=== PATIENT | male | born 1990 | race Caucasian/White ===

== ENCOUNTER 2017-08-01 22:35 | Emergency (ER) | payer SELFPAY ==
[~2017-08-01] VITALS: Ht 167.6 cm; Wt 64.0 kg
[2017-08-01 22:41] VITALS: BP 134/70; PULSE 93; RESP 20; TEMP 98.1
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
[2017-08-01] MEDS ORDERED: ceFAZolin 2 GM PREMIX 50 ML IV ONE (23:00)
[2017-08-01] MEDS ORDERED: SODIUM CHLOR 0.9% 1000 ML INJ 1,000 ML IV ONE (23:00)
[2017-08-01] MEDS ORDERED: DIPHTH/TETANUS/ACEL PERTUSSIS (BOOSTER) 0.5 ML VIAL/PFS IM ONE (23:00)
[2017-08-01 23:27] LABS: AUTOMATED NEUTROPHIL # 3.7 TH/MM3 (1.8-7.7); BASOPHIL % 0.7 % (0.0-2.0); EOSINOPHIL # 0.4 TH/MM3 (0-0.4); EOSINOPHIL % 6.3 % (0.0-4.0); HEMO FLAGS DIFF FINAL; LYMPH % 30.4 % (9.0-44.0); MEAN CELL VOLUME 93.3 FL (80.0-100.0); MEAN CORPUSCULAR HEMOGLOBIN 31.7 PG (27.0-34.0); MONO % 7.1 % (0.0-8.0); NEUT % 55.5 % (16.0-70.0); PLATELET COUNT 230 TH/MM3 (150-450); RED CELL DISTRIBUTION WIDTH 12.5 % (11.6-17.2); WHITE BLOOD COUNT 6.7 TH/MM3 (4.0-11.0)
[2017-08-01 23:38] LABS: APTT (PATIENT) 25.5 SEC (24.3-30.1); PROTHROMBIN TIME - PATIENT 10.7 SEC (9.8-11.6)
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
[2017-08-01 23:57] LABS: ALKALINE PHOSPHATASE 66 U/L (45-117); ALT (GPT) 25 U/L (12-78); TOTAL BILIRUBIN ADULT 0.2 MG/DL (0.2-1.0)
[2017-08-02 00:19] LABS: ANION GAP 10 MEQ/L (5-15); AST (GOT) 21 U/L (15-37); BICARBONATE 22.8 MEQ/L (21.0-32.0); BLOOD UREA NITROGEN 14 MG/DL (7-18); CHLORIDE 112 MEQ/L (98-107); GLOMERULAR FILTRATION RATE 108 ML/MIN (>89); POTASSIUM 3.5 MEQ/L (3.5-5.1); SODIUM (NA) 145 MEQ/L (136-145)
[2017-08-02 00:22] LABS: ACETAMINOPHEN LESS THAN 2.0 MCG/ML (10.0-30.0); ALCOHOL 224 MG/DL (0-5)
[2017-08-02 00:35] LABS: BLOOD, URINE NEG (NEG); COMMENT (UR) CULT NOT INDICATED; CULTURE IF INDICATED CULT NOT INDICATED; GLUCOSE,URINE NEG (NEG); KETONE, URINE TRACE mg/dL (NEG); MUCUS URINE FEW /lpf (OCC); NITRITE,URINE NEG (NEG); URINE COLOR LIGHT-YELLOW (YELLW/STRAW)
[2017-08-02] MEDS ORDERED: IOHEXOL 350 MG/ML 10 ML VIAL (for RAD DIAG) IVCONTRAST ONE (01:00)
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
[2017-08-02 02:19] VITALS: BP 128/55; PULSE 78; RESP 16; O2SAT 97
== END 2017-08-02 03:20 | disposition home or self-care (01) ==
LOC: NEPE 22:35
DX: S30.811A Abrasion of abdominal wall, initial encounter (principal); S30.810A Abrasion of lower back and pelvis, initial encounter; S90.512A Abrasion, left ankle, initial encounter; S20.221A Contusion of right back wall of thorax, initial encounter; M25.551 Pain in right hip; V03.90XA Pedestrian on foot injured in collision with car, pick-up truck or van, unspecified whether traffic or nontraffic accident, initial encounter; Y92.414 Local residential or business street as the place of occurrence of the external cause
CPT/HCPCS: 70450; 71010; 72125; 73502; 74177; 80053; 80307; 81001; 85025; 85384; 85610; 85730; 86850; 86900; 86901; 90471; 90715; 96365; 99285; J0690; J7030; Q9967

== ENCOUNTER 2018-04-22 10:51 | Inpatient (IN) | payer OTHER ==
[~2018-04-22] VITALS: Ht 167.6 cm; Wt 56.9 kg
[2018-04-22 11:12] VITALS: BP 111/69; PULSE 83; RESP 17; TEMP 97.5; O2SAT 96
[2018-04-22 12:07] LABS: AUTOMATED NEUTROPHIL # 4.8 TH/MM3 (1.8-7.7); BASOPHIL % 0.4 % (0.0-2.0); EOSINOPHIL % 0.1 % (0.0-4.0); HEMATOCRIT 42.3 % (39.0-51.0); HEMOGLOBIN 14.3 GM/DL (13.0-17.0); LYMPHOCYTE # 1.4 TH/MM3 (1.0-4.8); MEAN CELL VOLUME 91.7 FL (80.0-100.0); MEAN CORPUSCULAR HEMOGLOBIN 31.1 PG (27.0-34.0); MEAN CORPUSCULAR HGB CONC 33.9 % (32.0-36.0); MEAN PLATELET VOLUME 6.8 FL (7.0-11.0); MONO % 7.5 % (0.0-8.0); MONOCYTE # 0.5 TH/MM3 (0-0.9); PLATELET COUNT 257 TH/MM3 (150-450); RED BLOOD COUNT 4.61 MIL/MM3 (4.50-5.90); RED CELL DISTRIBUTION WIDTH 12.9 % (11.6-17.2); WHITE BLOOD COUNT 6.8 TH/MM3 (4.0-11.0)
[2018-04-22 12:23] LABS: ALBUMIN 4.8 GM/DL (3.4-5.0); AST (GOT) 26 U/L (15-37); BICARBONATE 27.1 MEQ/L (21.0-32.0); BLOOD UREA NITROGEN 15 MG/DL (7-18); CALCIUM 9.7 MG/DL (8.5-10.1); CHLORIDE 105 MEQ/L (98-107); CREATININE 0.97 MG/DL (0.60-1.30); GLOMERULAR FILTRATION RATE 94 ML/MIN (>89); GLUCOSE,RANDOM 81 MG/DL (74-106); SODIUM (NA) 140 MEQ/L (136-145)
[2018-04-22 12:24] LABS: ALT (GPT) 35 U/L (12-78)
[2018-04-22 12:26] LABS: ALKALINE PHOSPHATASE 83 U/L (45-117); TOTAL BILIRUBIN ADULT 0.9 MG/DL (0.2-1.0); TOTAL PROTEIN 8.3 GM/DL (6.4-8.2)
[2018-04-22 16:57] VITALS: BP 108/70; PULSE 74; RESP 18; TEMP 98.3; O2SAT 98
--- NOTE | 2018-04-22 17:32 | PD ---
HPI Chief Complaint: Psychiatric Symptoms Time Seen by Provider: 14:22 Travel History International Travel<30 days: No Contact w/Intl Traveler<30days: No Traveled to known affect area: No History of Present Illness HPI 27-year-old male presents to the emergency room voluntarily. States his sister brought him and encouraged him to stay. Patient states he has been talking to himself and his sister thinks he is weird. He has history of bipolar disorder and ADHD but has not been medicated since he was 15. He denies any physical complaints at this time. Denies any suicidal homicidal ideation. Denies hallucinations or delusions. States he has not smoked meth in about a month. He drank alcohol last night but has not done any other illicit drugs recently. He denies any chronic medical conditions or daily medications. PFSH Past Medical History AAA: No ADD: No ADHD: No Alzheimer's Disease: No Anemia: No Arthritis: No Asthma: No Atrial Fibrillation: No Autoimmune Disease: No Blood Disorders: No Bipolar Disorder: Yes Anxiety: Yes Depression: Yes Heart Rhythm Problems: No Cancer: No Cardiac Catheterization: No Cardiomyopathy: No Cardiovascular Problems: No Cerebral Palsy: No High Cholesterol: No Chemotherapy: No Chest Pain: No Congestive Heart Failure: No Cirrhosis: No COPD: No Cerebrovascular Accident: No Coronary Artery Disease: No Cystic Fibrosis: No Dementia: No Developmental Delay: No Diabetes: No Patient Takes Glucophage: No Dialysis: No Diminished Hearing: No Diverticulitis: No Deep Vein Thrombosis: No Endocrine: No Fibromyalgia: No Gastrointestinal Disorders: No Genetic Disorder: No GERD: No Glaucoma: No Gout: No Genitourinary: No Headaches: No Hepatitis: No Hiatal Hernia: No Heparin Induced Thrombocytopen: No Herniated Disk: No Hypertension: No Immune Disorder: No Inguinal Hernia: No Implanted Vascular Access Dvce: No Insomnia: No Kidney Stones: No Medical other: No Musculoskeletal: No Neurologic: No Parkinson's Disease: No Psychiatric: Yes Reproductive: No Respiratory: No Resp. Syncytial Virus (RSV): No Integumentary: No Immunizations Current: No Migraines: No Myocardial Infarction: No Pancreatitis: No Pneumonia: No Radiation Therapy: No Renal Failure: No Schizophrenia: No Seizures: No Shingles: No Sickle Cell Disease: No Sleep Apnea: No Thyroid Disease: No Triglycerides - High: No Ulcer: No Tetanus Vaccination: < 5 Years Influenza Vaccination: No Past Surgical History Abdominal Aneurysm Repair: No Abdominal Surgery: No AICD: No Appendectomy: No Arteriovenous Shunt: No Cardiac Surgery: No Cholecystectomy: No Coronary Artery Bypass Graft: No Coronary Stent: No Ear Surgery: No Endocrine Surgery: No Eye Surgery: No Genitourinary Surgery: No Gynecologic Surgery: No Insulin Pump: No Joint Replacement: No Mastectomy: No Neurologic Surgery: No Oral Surgery: No Pacemaker: No Prostatectomy: No Thoracic Surgery: No Tonsillectomy: No Tympanostomy Tube: No Valve Replacement: No Other Surgery: Yes (I&D abcess to left arn) Family History Family Breast Cancer: No Family Myocardial Infarction: No Family Hypercholesterolemia: No Social History Alcohol Use: Yes Tobacco Use: Yes Substance Use: Yes Allergies-Medications (Allergen,Severity, Reaction): Coded Allergies: No Known Allergies (Verified , 08/01/17) Reported Meds & Prescriptions Reported Meds & Active Scripts Active No Active Prescriptions or Reported Medications Review of Systems Except as stated in HPI: all other systems reviewed are Neg Physical Exam Narrative GENERAL: Well-nourished, well-developed male in no acute distress. Afebrile. Ambulatory. SKIN: Focused skin assessment warm/dry. HEAD: Normocephalic. EYES: No scleral icterus. No injection or drainage. NECK: Supple, trachea midline. No JVD or lymphadenopathy. CARDIOVASCULAR: Regular rate and rhythm without murmurs, gallops, or rubs. RESPIRATORY: Breath sounds equal bilaterally. No accessory muscle use. PSYCHIATRIC: No delusional thought processes. No hallucinations. He does not appear to be responding to external examination. Data Data Last Documented VS Vital Signs Date Time Temp Pulse Resp B/P (MAP) Pulse Ox O2 Delivery O2 Flow Rate FiO2 04/22/18 16:57 98.3 74 18 108/70 (83) 98 Room Air Orders Orders Complete Blood Count With Diff (04/22/18 11:14) Comprehensive Metabolic Panel (04/22/18 11:14) Psych Screen (04/22/18 11:14) Drug Screen, Random Urine (04/22/18 11:14) Diet Regular Basic (04/22/18 Dinner) Labs Laboratory Tests Test 04/22/18 11:41 04/22/18 11:42 White Blood Count 6.8 TH/MM3 Red Blood Count 4.61 MIL/MM3 Hemoglobin 14.3 GM/DL Hematocrit 42.3 % Mean Corpuscular Volume 91.7 FL Mean Corpuscular Hemoglobin 31.1 PG Mean Corpuscular Hemoglobin Concent 33.9 % Red Cell Distribution Width 12.9 % Platelet Count 257 TH/MM3 Mean Platelet Volume 6.8 FL Neutrophils (%) (Auto) 71.0 % Lymphocytes (%) (Auto) 21.0 % Monocytes (%) (Auto) 7.5 % Eosinophils (%) (Auto) 0.1 % Basophils (%) (Auto) 0.4 % Neutrophils # (Auto) 4.8 TH/MM3 Lymphocytes # (Auto) 1.4 TH/MM3 Monocytes # (Auto) 0.5 TH/MM3 Eosinophils # (Auto) 0.0 TH/MM3 Basophils # (Auto) 0.0 TH/MM3 CBC Comment DIFF FINAL Differential Comment Blood Urea Nitrogen 15 MG/DL Creatinine 0.97 MG/DL Random Glucose 81 MG/DL Total Protein 8.3 GM/DL Albumin 4.8 GM/DL Calcium Level 9.7 MG/DL Alkaline Phosphatase 83 U/L Aspartate Amino Transf (AST/SGOT) 26 U/L Alanine Aminotransferase (ALT/SGPT) 35 U/L Total Bilirubin 0.9 MG/DL Sodium Level 140 MEQ/L Potassium Level 4.1 MEQ/L Chloride Level 105 MEQ/L Carbon Dioxide Level 27.1 MEQ/L Anion Gap 8 MEQ/L Estimat Glomerular Filtration Rate 94 ML/MIN Urine Opiates Screen NEG Urine Barbiturates Screen NEG Urine Amphetamines Screen NEG Urine Benzodiazepines Screen NEG Urine Cocaine Screen NEG Urine Cannabinoids Screen NEG MDM Medical Decision Making Medical Screen Exam Complete: Yes Emergency Medical Condition: Yes Medical Record Reviewed: Yes Differential Diagnosis Bipolar disorder, schizophrenia, substance abuse, substance induced mood disorder Narrative Course 27-year-old who presents to the emergency room by request of his sister voluntarily for evaluation of "acting weird." Patient states his sister believes he is acting strange because he keeps talking to himself. He denies hallucinations or delusions. Denies suicidal or homicidal ideation. Patient does not appear to be responding to stimuli during examination but was monitored on the video surveillance having conversations with people that are not there. He denies any medical complaint. Denies any history of medical complaints. He does have history of bipolar disorder but has not been medicated in several years. CBC and CMP are unremarkable. Toxicology is negative. He is medically cleared for psychiatric evaluation. Scripts No Active Prescriptions or Reported Meds Condition: Litzy Cruz April 22, 2018 17:32
[2018-04-22] MEDS ORDERED: OLANZapine ODT 10 MG TAB PO ONE (17:45)
[2018-04-22] MEDS ORDERED: diphenhydrAMINE HCL 50 MG CAP PO ONE (17:45)
[2018-04-23 02:29] VITALS: BP 101/54; PULSE 80; RESP 18; TEMP 96.8; O2SAT 97
[2018-04-23 06:35] VITALS: BP 107/62; PULSE 50; RESP 19; TEMP 98.6; O2SAT 98
[2018-04-23] MEDS ORDERED: LORazepam 2 MG/ML VIAL IM PRN ×2 (08:30)
[2018-04-23] MEDS ORDERED: ALUMINUM/MAGNESIUM/SIMETH 30 ML CUP PO PRN (08:30)
[2018-04-23] MEDS ORDERED: MAGNESIUM HYDROXIDE SUSP 30 ML CUP PO PRN (08:30)
[2018-04-23] MEDS ORDERED: LORazepam 0.5 MG TAB PO PRN (08:30)
[2018-04-23] MEDS: NICOTINE 21 MG/24 HR PATCH T-DERMAL SCH (09:00)
[2018-04-23 10:15] VITALS: BP 112/67; PULSE 56; RESP 16; TEMP 97.8; O2SAT 98
[2018-04-23] MEDS: ARIPiprazole 5 MG TAB PO SCH (11:11)
--- NOTE | 2018-04-23 11:51 | HHI.HP ---
Provisional Diagnosis Admission Date April 23, 2018 at 08:27 [place] I. Unspecified psychosis, r/o schizoaffective disorder bipolar, R/o schizophrenia, r/o substance-induced psychosis, history of bipolar disorder, ODD [place] II. Deferred [place] III. No significant medical history [place] IV. Multiple psychiatric hospitalizations in the past, he is not in psychiatric treatment, substance abuse [place] V. 40 Certification of Person's Competence To Provide Express and Informed Consent I have personally examined Lorenzo Bennett , a person being served at [facility] on, April 23, 2018 11:35. Express and informed consent means consent voluntarily given in writing, by a competent person, after sufficient explanation and disclosure of the subject matter involved to enable the person to make a knowing and willful decision without any element of force, fraud, deceit, duress, or other form of constraint or coercion. This person is 18 years of age or older, is not now known to be incompetent to consent to treatment with a guardian advocate, and does not have a health care surrogate or proxy currently making medical treatment decisions. I have found this person to be one of the following: [] Competent to provide express and informed consent, as defined above, for voluntary admission to this facility and is competent to provide express and informed consent for treatment. He/she has the consistent capacity to make well reasoned, willful, and knowing decisions concerning his or her medical or mental health treatment. The person fully and consistently understands the purpose of the admission for examination/placement and is fully capable of personally exercising all rights [place] Incompetent to provide express and informed consent to voluntary admission, and this is incompetent to provide express and informed consent to treatment. The person must be transferred to involuntary status and a petition for a guardian advocate filed with the Circuit Court. [x] Refusing to provide express and informed consent to voluntary admission but is competent to provide express and informed consent for treatment. The person must be discharged or transferred to involuntary status. Form shall be completed within 24 hours of a person's arrival at the receiving facility and filed in the clinical record of each person: 1. Admitted on a voluntary basis 2. Permitted to provide express and informed consent to his/her own treatment 3. Allowed to transfer from involuntary to voluntary status 4. Prior to permitting a person to consent to his or her own treatment after having been previously found incompetent to consent to treatment. History of Present Illness Capacity: Has Capacity HPI The patient is a 27-year-old man, domiciled in [place] with his sister, single, part-time employed doing yard work, with an extensive psychiatric history of bipolar disorder, ODD, ADHD, multiple psychiatric hospitalizations in his childhood and adolescence, one previous suicide attempt , not taking any psychotropics, no outpatient care, cocaine and alcohol use disorder, no significant medical history, presents to the emergency room initially voluntarily with his sister for psychiatric evaluation. Initially states his sister brought him and encouraged him to stay and to start his treatment. Patient states he has been talking to himself and his sister thinks he is weird. When the patient was transferred to the [facility] from [facility] he became increasingly agitated and verbally hostile, he was not able to follow verbal redirection and he was medicated with olanzapine 10 mg and Benadryl 25 mg IM to help him to calm down. He was also put on the [place] act. Today on psychiatric evaluation I find a patient that is guarded, irritable, oppositional , disheveled and dirty. At the beginning the patient was refusing to talk to me. But, he was sensitive to verbal redirection this time and he opened up a little bit. The patient has a marked blocking thought and speech delay. He states that for the first time in about a week he had a good sleep last night. He reports that he has not been sleeping more than 2 hours. He says that he has been hearing voices on and off. The voices are conversing among themself making derogatory comments about him. He also states that at times the voices get very loud "and nasty". As per sister the patient has been talking to himself, acting bizarre, secluded in his room, not taking showers, not taking care of himself and not sleeping. The patient is now fully oriented 3, he has no attention deficit, no fluctuation of consciousness. The patient denies suicidal and homicidal ideation, he denies visual hallucinations. Patient reports that he has been using alcohol and cocaine occasionally, he uses for the last time about 3 days ago. Review of Systems Constitutional: DENIES: Diaphoretic episodes, Fatigue, Fever, Weight gain, Weight loss, Chills, Dizziness, Change in appetite, Night Sweats Endocrine: DENIES: Heat/cold intolerance, Polydipsia, Polyuria, Polyphagia Eyes: DENIES: Blurred vision, Diplopia, Eye inflammation, Eye pain, Vision loss , Photosensitivity, Double Vision Ears, nose, mouth, throat: DENIES: Tinnitus, Hearing loss, Vertigo, Nasal discharge, Oral lesions, Throat pain, Hoarseness, Ear Pain, Running Nose, Epistaxis, Sinus Pain, Toothache, Odynophagia Respiratory: DENIES: Apneas, Cough, Snoring, Wheezing, Hemoptysis, Sputum production, Shortness of breath Cardiovascular: DENIES: Chest pain, Palpitations, Syncope, Dyspnea on Exertion , PND, Lower Extremity Edema, Orthopnea, Claudication Gastrointestinal: DENIES: Abdominal pain, Black stools, Bloody stools, Constipation, Diarrhea, Nausea, Vomiting, Difficulty Swallowing, Anorexia Genitourinary: DENIES: Sexual dysfunction, Urinary frequency, Urinary incontinence, Urgency, Hematuria, Dysuria, Nocturia, Penile Discharge, Testicular Pain, Testicular Swelling Musculoskeletal: DENIES: Joint pain, Muscle aches, Stiffness, Joint Swelling, Back pain, Neck pain Integumentary: DENIES: Abnormal pigmentation, Nail changes, Pruritus, Rash Hematologic/lymphatic: DENIES: Bruising, Lymphadenopathy Immunologic/allergic: DENIES: Eczema, Urticaria Neurologic: DENIES: Abnormal gait, Headache, Localized weakness, Paresthesias, Seizures, Speech Problems, Tremor, Poor Balance Psychiatric: COMPLAINS OF: Hallucinations, DENIES: Anxiety, Confusion, Mood changes, Depression, Agitation, Homicidal Ideation Substance Abuse History Drugs/Alcohol past 12 months Uses cocaine and alcohol occasionally Past Family Social History Coded Allergies: No Known Allergies (Verified Allergy, Unknown, 04/22/18) No Active Prescriptions or Reported Meds Current Medications Medications (Trade) Dose Ordered Sig/Rosa Route Start Time Stop Time Status Last Admin (Ativan) 1 mg Q6H PRN PO 04/23/18 08:30 (Ativan Inj) 1 mg Q6H PRN IM 04/23/18 08:30 (Tylenol) 650 mg Q4H PRN PO 04/23/18 08:30 (Milk Of Magnesia Liq) 30 ml DAILY PRN PO 04/23/18 08:30 (Mag-Al Plus Susp Liq) 30 ml Q6H PRN PO 04/23/18 08:30 (Habitrol 21 Mg Patch.24 Hr) 1 patch DAILY T-DERMAL 04/23/18 09:00 (Abilify) 5 mg DAILY PO 04/23/18 09:00 04/23/18 11:11 Miscellaneous Information 1 HS T-DERMAL 04/23/18 21:00 Family Psych History No family psychiatric history Social History Patient was born and raised in [place], he lives in [place] with his sister, single, employed part-time, his highest level of education is high school Patient's Strengths (min. 2) Family support Physical Exam No tremors, no EPS, he does presents with psychomotor retardation, sedated Vital Signs Vital Signs Date Time Temp Pulse Resp B/P (MAP) Pulse Ox O2 Delivery O2 Flow Rate FiO2 04/23/18 10:00 04/23/18 06:35 98.6 50 19 98 Room Air Lab Results Test 04/22/18 11:41 04/22/18 11:42 White Blood Count 6.8 TH/MM3 Red Blood Count 4.61 MIL/MM3 Hemoglobin 14.3 GM/DL Hematocrit 42.3 % Mean Corpuscular Volume 91.7 FL Mean Corpuscular Hemoglobin 31.1 PG Mean Corpuscular Hemoglobin Concent 33.9 % Red Cell Distribution Width 12.9 % Platelet Count 257 TH/MM3 Mean Platelet Volume 6.8 FL Neutrophils (%) (Auto) 71.0 % Lymphocytes (%) (Auto) 21.0 % Monocytes (%) (Auto) 7.5 % Eosinophils (%) (Auto) 0.1 % Basophils (%) (Auto) 0.4 % Neutrophils # (Auto) 4.8 TH/MM3 Lymphocytes # (Auto) 1.4 TH/MM3 Monocytes # (Auto) 0.5 TH/MM3 Eosinophils # (Auto) 0.0 TH/MM3 Basophils # (Auto) 0.0 TH/MM3 CBC Comment DIFF FINAL Differential Comment Blood Urea Nitrogen 15 MG/DL Creatinine 0.97 MG/DL Random Glucose 81 MG/DL Total Protein 8.3 GM/DL Albumin 4.8 GM/DL Calcium Level 9.7 MG/DL Alkaline Phosphatase 83 U/L Aspartate Amino Transf (AST/SGOT) 26 U/L Alanine Aminotransferase (ALT/SGPT) 35 U/L Total Bilirubin 0.9 MG/DL Sodium Level 140 MEQ/L Potassium Level 4.1 MEQ/L Chloride Level 105 MEQ/L Carbon Dioxide Level 27.1 MEQ/L Anion Gap 8 MEQ/L Estimat Glomerular Filtration Rate 94 ML/MIN Urine Opiates Screen NEG Urine Barbiturates Screen NEG Urine Amphetamines Screen NEG Urine Benzodiazepines Screen NEG Urine Cocaine Screen NEG Urine Cannabinoids Screen NEG Mental Status Examination Appearance: Dirty, Disheveled Consciousness: Alert Orientation: x4 Motor Activity: Normal gait Speech: Unremarkable Language: Adequate Fund of Knowledge: Adequate Attention and Concentration: Adequate Memory: Unremarkable Mood: Oppositional Affect: Irritable Thought Process & Associations: Goal directed Thought Content: Bizarre thinking, Delusional Hallucination Type: Auditory Delusion Type: None, Paranoid Suicidal Ideation: No Suicidal Plan: No Suicidal Intention: No Homicidal Ideation: No Homicidal Plan: No Homicidal Intention: No Insight: Poor Judgment: Poor Assessment & Plan Problem List: (1) Unspecified psychosis ICD Codes: F29 - Unspecified psychosis not due to a substance or known physiological condition Assessment & Plan: Psychiatric evaluation today the patient presents with about a week of psychotic decompensation. The has been hearing voices making derogatory comments about him, has been internally preoccupied, increasingly paranoid and disorganized, secluded at home, sleeping poorly, not taking good care of himself. During my evaluation he also presents with internal preoccupations, blocking thought and speech delay. Yesterday due to increased agitation, paranoia and verbal hostility he was medicated with olanzapine 10 mg IM and Benadryl 25 mg to calm him down. This is a patient with psychiatric history of bipolar disorder, ODD, substance abuse, he uses alcohol and cocaine occasionally. At this time his U tox is negative. Given his level of psychosis reality testing impairment patient needs psychiatric hospitalization for stabilization and safety. We will start Abilify 5 mg daily for psychosis. Transfer to 2600 unit. Psychosocial intervention for collateral information, individual and group therapies, psychosocial assessment and to coordinate safe discharge. Brief supportive psychotherapy provided. Assessment & Plan Estimated LOS: Nicolas Terrell MD April 23, 2018 11:51
[2018-04-23 18:00] VITALS: BP 95/51; PULSE 52; RESP 17; TEMP 98.1; O2SAT 100
[2018-04-23] MEDS: REMOVE OLD NICODERM (NICOTINE) PATCH T-DERMAL SCH (20:58)
[2018-04-24 05:20] VITALS: BP 100/55; PULSE 56; RESP 16; TEMP 97.8; O2SAT 98
[2018-04-24] MEDS: NICOTINE 21 MG/24 HR PATCH T-DERMAL SCH (09:00)
[2018-04-24] MEDS: ARIPiprazole 5 MG TAB PO SCH (09:00)
[2018-04-24 09:24] LABS: BICARBONATE 30.4 MEQ/L (21.0-32.0); BLOOD UREA NITROGEN 22 MG/DL (7-18); CALCIUM 9.1 MG/DL (8.5-10.1); CHLORIDE 105 MEQ/L (98-107); CREATININE 1.04 MG/DL (0.60-1.30); GLOMERULAR FILTRATION RATE 86 ML/MIN (>89); GLUCOSE,RANDOM 81 MG/DL (74-106); SODIUM (NA) 143 MEQ/L (136-145)
[2018-04-24 09:26] LABS: CHOLESTEROL 133 MG/DL (120-200); TRIGLYCERIDES 85 MG/DL (42-150)
[2018-04-24 09:27] LABS: CHOLESTEROL/ HDL RATIO 2.92 RATIO; HDL CHOLESTEROL 45.5 MG/DL (40.0-60.0); LDL CHOLESTEROL 71 MG/DL (0-99)
[2018-04-24] MEDS ORDERED: PNEUMOCOCCAL POLYVALENT INJ 25 MCG/0.5 ML SYR IM ONE (10:00)
[2018-04-24] MEDS ORDERED: INFLUENZA VIRUS VACCINE (QUADRIVALENT) 0.5 ML SYR IM ONE (10:00)
[2018-04-24 13:27] LABS: HEMOGLOBIN A1C 4.8 % (4.3-6.0)
--- NOTE | 2018-04-24 14:53 | PD.PSY.CON ---
Provisional Diagnosis Admission Date April 23, 2018 at 08:27 [place] I. 1. Unspecified psychosis [place] II. Deferred History of Present Illness Service Psychiatry Consult Requested By Dr. Barriga Reason for Consult Second opinion for involuntary psychiatric hospitalization Primary Care Physician No Primary Care Physician HPI From Dr. Barriga's H&P: The patient is a 27-year-old man, domiciled in [place] with his sister, single, part-time employed doing yard work, with an extensive psychiatric history of bipolar disorder, ODD, ADHD, multiple psychiatric hospitalizations in his childhood and adolescence, one previous suicide attempt , not taking any psychotropics, no outpatient care, cocaine and alcohol use disorder, no significant medical history, presents to the emergency room initially voluntarily with his sister for psychiatric evaluation. Initially states his sister brought him and encouraged him to stay and to start his treatment. Patient states he has been talking to himself and his sister thinks he is weird. When the patient was transferred to the [facility] from [facility] ER he became increasingly agitated and verbally hostile, he was not able to follow verbal redirection and he was medicated with olanzapine 10 mg and Benadryl 25 mg IM to help him to calm down. He was also put on the [place] act. Today on psychiatric evaluation I find a patient that is guarded, irritable, oppositional , disheveled and dirty. At the beginning the patient was refusing to talk to me. But, he was sensitive to verbal redirection this time and he opened up a little bit. The patient has a marked blocking thought and speech delay. He states that for the first time in about a week he had a good sleep last night. He reports that he has not been sleeping more than 2 hours. He says that he has been hearing voices on and off. The voices are conversing among themself making derogatory comments about him. He also states that at times the voices get very loud "and nasty". As per sister the patient has been talking to himself, acting bizarre, secluded in his room, not taking showers, not taking care of himself and not sleeping. The patient is now fully oriented 3, he has no attention deficit, no fluctuation of consciousness. The patient denies suicidal and homicidal ideation, he denies visual hallucinations. Patient reports that he has been using alcohol and cocaine occasionally, he uses for the last time about 3 days ago. On my examination today, 04/24: Patient seen and examined with nurse. Chart reviewed. Case discussed with nursing staff who reports patient is frankly responding to internal stimuli. On my examination today, the patient presents as quite disheveled and disorganized. He walks back and forth from the door to his room and the door to his bathroom checking these in a somewhat aimless fashion. He endorses auditory hallucinations commenting; denies any command auditory hallucinations. Denies SI or HI but admits to recent suicidal ideation "a couple of times." He reports depression "off and on, like a light switch." No hypomanic or manic symptoms. Remainder of the psychiatric ROS is negative. No acute physical complaints. Past psychiatric history: Patient reports a history of bipolar disorder and ADHD. He is not currently under the care of a psychiatrist. He says that he has previously attempted suicide "once or twice." Family history: Patient denies family history of mental illness. Chemical dependency history: Patient reports a remote history of cocaine use. More recently he has been abusing Dilaudid and methamphetamine. Social history: The patient is high school educated. He works odd jobs. He is single with no children. Review of Systems ROS Limitations: Psychotic, Poor Historian Except as stated in HPI: all other systems reviewed are Neg Past Family Social History Coded Allergies: No Known Allergies (Verified Allergy, Unknown, 04/22/18) Past Medical History See electronic medical record No Active Prescriptions or Reported Meds Current Medications Medications (Trade) Dose Ordered Sig/Rosa Route Start Time Stop Time Status Last Admin (Ativan) 1 mg Q6H PRN PO 04/23/18 08:30 (Ativan Inj) 1 mg Q6H PRN IM 04/23/18 08:30 (Tylenol) 650 mg Q4H PRN PO 04/23/18 08:30 (Milk Of Magnesia Liq) 30 ml DAILY PRN PO 04/23/18 08:30 (Mag-Al Plus Susp Liq) 30 ml Q6H PRN PO 04/23/18 08:30 (Habitrol 21 Mg Patch.24 Hr) 1 patch DAILY T-DERMAL 04/23/18 09:00 04/24/18 09:00 (Abilify) 5 mg DAILY PO 04/23/18 09:00 04/24/18 09:00 Miscellaneous Information 1 HS T-DERMAL 04/23/18 21:00 Patient's Strengths (min. 2) In a monitored setting. Verbally fluent. Physical Exam Physical examination completed by ED provider. On my examination today, patient appears to be in no acute physical distress. No motor abnormalities noted. No signs of intoxication or withdrawal noted. Labs and vitals reviewed: Vital Signs Vital Signs Date Time Temp Pulse Resp B/P (MAP) Pulse Ox O2 Delivery O2 Flow Rate FiO2 04/24/18 05:20 97.8 56 16 100/55 (70) 98 04/23/18 06:35 Room Air Lab Results Test 04/24/18 08:17 Blood Urea Nitrogen 22 MG/DL Creatinine 1.04 MG/DL Random Glucose 81 MG/DL Calcium Level 9.1 MG/DL Sodium Level 143 MEQ/L Potassium Level 3.9 MEQ/L Chloride Level 105 MEQ/L Carbon Dioxide Level 30.4 MEQ/L Anion Gap 8 MEQ/L Estimat Glomerular Filtration Rate 86 ML/MIN Triglycerides Level 85 MG/DL Cholesterol Level 133 MG/DL LDL Cholesterol 71 MG/DL HDL Cholesterol 45.5 MG/DL Cholesterol/HDL Ratio 2.92 RATIO Mental Status Examination Appearance: Dirty, Disheveled Consciousness: Alert Orientation: x4 Motor Activity: Normal gait Speech: Unremarkable Language: Adequate Fund of Knowledge: Adequate Attention and Concentration: Adequate Memory: Impaired (Psychosis interferes) Mood: Other (Somewhat depressed) Affect: Blunt Thought Process & Associations: Disorganized Thought Content: Bizarre thinking, Delusional Hallucination Type: Auditory (Commenting) Delusion Type: Paranoid Suicidal Ideation: No (Unreliable to contract for safety) Suicidal Plan: No Suicidal Intention: No Homicidal Ideation: No Homicidal Plan: No Homicidal Intention: No Insight: Poor Judgment: Poor Assessment & Plan Problem List: (1) Unspecified psychosis ICD Codes: F29 - Unspecified psychosis not due to a substance or known physiological condition Assessment & Plan Given the circumstances of the patient's presentation here and his presentation on my examination today, I concur that the patient meets criteria for involuntary psychiatric hospitalization under the [place] act. Main concern here is for self-care deficit secondary to psychosis. I have completed second opinion paperwork. I will titrate patient's Abilify to target psychotic symptoms. Continue to monitor on the inpatient unit. Continue other medications and care as ordered. Discharge Planning As ordered by primary psychiatrist. Patient requires psychiatric hospitalization for medication changes, impairment in reality construction and high risk for decompensation in less restrictive setting. Apolinar Lenz MD April 24, 2018 14:53
[2018-04-24] MEDS: ACETAMINOPHEN 325 MG TAB PO PRN (18:28)
[2018-04-24 19:00] VITALS: BP 110/60; PULSE 60; RESP 18; TEMP 98.2; O2SAT 98
[2018-04-24] MEDS: REMOVE OLD NICODERM (NICOTINE) PATCH T-DERMAL SCH (21:00)
[2018-04-25 07:07] VITALS: BP 102/64; PULSE 57; RESP 16; TEMP 97.6; O2SAT 99
[2018-04-25] MEDS: NICOTINE 21 MG/24 HR PATCH T-DERMAL SCH (09:00)
[2018-04-25] MEDS: ARIPiprazole 5 MG TAB PO SCH (09:28)
[2018-04-25] MEDS: LORazepam 1 MG TAB PO PRN ×2 (11:03→18:25)
--- NOTE | 2018-04-25 14:41 | HHI.PYPN ---
Subjective Remarks Reviewed electronic medical record and discussed case with staff. Staff reports that patient has been sleeping well, denies auditory hallucinations but appears to be internally stimulated and experiencing some thought blocking. Patient showered with encouragement. He additionally was pacing so his nurse administered him 1 mg of as needed Ativan which seemed to help. Follow-up was conducted in patient's room. Patient reports that he initially had trouble getting to sleep but once asleep he slept well. He states that his appetite is been good. He does endorse hearing voices to this provider however he says they have leveled off and the only say good things. He denies any suicidal ideation Mental Status Examination Appearance: Dirty, Disheveled Consciousness: Alert Orientation: x4 Motor Activity: Normal gait Speech: Unremarkable Language: Adequate Fund of Knowledge: Adequate Attention and Concentration: Adequate Memory: Impaired (Psychosis interferes) Mood: Other (Somewhat depressed) Affect: Blunt Thought Process & Associations: Disorganized Thought Content: Bizarre thinking, Delusional Hallucination Type: Auditory (Commenting) Delusion Type: Paranoid Suicidal Ideation: No (Unreliable to contract for safety) Suicidal Plan: No Suicidal Intention: No Homicidal Ideation: No Homicidal Plan: No Homicidal Intention: No Insight: Poor Judgment: Poor Results Vitals/IOs Vital Signs Date Time Temp Pulse Resp B/P (MAP) Pulse Ox O2 Delivery O2 Flow Rate FiO2 04/25/18 07:07 97.6 57 16 102/64 (77) 99 04/23/18 06:35 Room Air Assessment & Plan Problem List: (1) Unspecified psychosis ICD Codes: F29 - Unspecified psychosis not due to a substance or known physiological condition Assessment & Plan Estimated LOS: Patient will be reevaluated by his attending psychiatrist tomorrow. Continue with days Justification for Cont. Inpt. Moving this patient to a lower level of care could result in a decompensation on his part. Litzy Kowalski April 25, 2018 14:41
[2018-04-25 18:16] VITALS: BP 110/66; PULSE 60; RESP 16; TEMP 97.4; O2SAT 100
[2018-04-25] MEDS: REMOVE OLD NICODERM (NICOTINE) PATCH T-DERMAL SCH (21:00)
[2018-04-26 06:12] VITALS: BP 105/59; PULSE 52; RESP 18; TEMP 97.9; O2SAT 98
[2018-04-26] MEDS: ARIPiprazole 5 MG TAB PO SCH (09:42)
[2018-04-26] MEDS: NICOTINE 21 MG/24 HR PATCH T-DERMAL SCH (09:42)
[2018-04-26] MEDS: LORazepam 1 MG TAB PO PRN ×2 (11:34→22:52)
[2018-04-26 17:46] VITALS: BP 131/78; PULSE 77; RESP 18; TEMP 98.5; O2SAT 99
--- NOTE | 2018-04-26 18:35 | HHI.PYPN ---
Subjective Remarks Patient seen for follow-up, chart reviewed. Discussion nursing staff reported the patient had difficulty with sleep last evening continues to be noted to be talking to self along with decreased nutritional intake. Collateral information from system recall on the unit had mentioned the patient had used methamphetamines recently. Patient was found heavily on the unit noted B, cooperative. Patient states that he had been having command auditory hallucinations prior to admission to "go down the road and fine" and continues endorse auditory hallucinations but not command anymore. Patient states that he is aware that he talks to himself and has conversations. Patient reports having visited by his sister and Wednesday which went well. Patient denies any visual hallucinations. Review of Systems Except as stated in HPI: all other systems reviewed are Neg Mental Status Examination Appearance: Disheveled Consciousness: Alert Orientation: x4 Motor Activity: Normal gait Speech: Unremarkable Language: Adequate Fund of Knowledge: Adequate Attention and Concentration: Adequate Memory: Impaired (Psychosis interferes) Mood: Other (Somewhat depressed) Affect: Blunt Thought Process & Associations: Disorganized (At times), Other ([place]) Thought Content: Bizarre thinking, Delusional Hallucination Type: Auditory (Commenting) Delusion Type: Paranoid Suicidal Ideation: No Suicidal Plan: No Suicidal Intention: No Homicidal Ideation: No Homicidal Plan: No Homicidal Intention: No Insight: Poor Judgment: Poor Results Vitals/IOs Vital Signs Date Time Temp Pulse Resp B/P (MAP) Pulse Ox O2 Delivery O2 Flow Rate FiO2 04/26/18 17:46 98.5 77 18 131/78 (95) 99 04/23/18 06:35 Room Air Intake and Output 04/26/18 04/26/18 04/27/18 08:00 16:00 00:00 Intake Total 360 ml Balance 360 ml Assessment & Plan Problem List: (1) Unspecified psychosis ICD Codes: F29 - Unspecified psychosis not due to a substance or known physiological condition Assessment & Plan Patient this time continues with auditory hallucinations, disorganized at times compliant with medications. We will increase Abilify to 10 mg p.o. daily for psychosis. We will continue to monitor mood and behavior. Discharge planning in progress. Justification for Cont. Inpt. At risk of further decompensation at lower level of care. Discharge Planning To be determined. Hector Nelson MD April 26, 2018 18:35
[2018-04-26] MEDS: ACETAMINOPHEN 325 MG TAB PO PRN (20:59)
[2018-04-26] MEDS: REMOVE OLD NICODERM (NICOTINE) PATCH T-DERMAL SCH (20:59)
[2018-04-27 06:26] VITALS: BP 107/52; PULSE 62; RESP 18; TEMP 97.6; O2SAT 97
[2018-04-27] MEDS: NICOTINE 21 MG/24 HR PATCH T-DERMAL SCH (08:37)
[2018-04-27] MEDS ORDERED: ARIPiprazole 5 MG TAB PO SCH (09:00)
--- NOTE | 2018-04-27 17:42 | HHI.PYPN ---
Subjective Remarks Patient seen for follow, chart reviewed. Discussion nursing staff reported the patient continues to be noted to talk to self at times. Patient was found ambulating on the unit noted B, cooperative. Patient states that he has spoken to his father recently but did not elaborate on conversation stating that he is feeling "okay" he reports only had 2 conversations with himself which the voices tell him about "things that happened in the past". Patient appears to be less internally preoccupied. Patient reports his mood as being "in between, up and down". Patient denies any perceptional services. Discussion about engaging rehabilitation program for substance use was reviewed which patient seemed reluctant at this time to engage into. Patient reports having been sober for about a month prior to his admission. Patient had difficult time maintaining attention during interview today. Discussion of patient agreed to voluntary status was reviewed which she agreed but later was reluctant to agree to this and therefore patient will be sent to mental health [facility] for continued hospitalization. Collateral information was obtained by patient's mother, who stated that she had last spoken with the patient several days ago when she felt patient was at a baseline and disorganized. She states that she will visit the patient this evening to assess how patient is progressing. Discussion about mental health court that will take place tomorrow was reviewed with her which she acknowledged. Review of Systems Except as stated in HPI: all other systems reviewed are Neg Mental Status Examination Appearance: Disheveled Consciousness: Alert Orientation: x4 Motor Activity: Normal gait Speech: Unremarkable Language: Adequate Fund of Knowledge: Adequate Attention and Concentration: Adequate Memory: Impaired (Psychosis interferes) Mood: Other (Somewhat depressed) Affect: Blunt Thought Process & Associations: Disorganized (Lessening), Other ([place]) Thought Content: Bizarre thinking, Hallucinations (Internally preoccupied), Delusional Hallucination Type: Auditory (Commenting) Delusion Type: Paranoid Suicidal Ideation: No Suicidal Plan: No Suicidal Intention: No Homicidal Ideation: No Homicidal Plan: No Homicidal Intention: No Insight: Poor Judgment: Poor Results Vitals/IOs Vital Signs Date Time Temp Pulse Resp B/P (MAP) Pulse Ox O2 Delivery O2 Flow Rate FiO2 04/27/18 06:26 97.6 62 18 107/52 (21) 97 Assessment & Plan Problem List: (1) Unspecified psychosis ICD Codes: F29 - Unspecified psychosis not due to a substance or known physiological condition Assessment & Plan Patient this time continues to have some disorganization, noted to be staring at times in his room, not noted to be talking to self as much per continues to have some auditory hallucinations. We will continue to titrate aripiprazole to 15 mg p.o. daily for psychosis. We will continue to monitor mood and behavior. Discharge planning in progress. Justification for Cont. Inpt. At risk of further decompensation at lower level of care. Discharge Planning Patient return back to [place] residence when psychiatrically stable. Hector Nelson MD April 27, 2018 17:42
[2018-04-27] MEDS: REMOVE OLD NICODERM (NICOTINE) PATCH T-DERMAL SCH (21:00)
[2018-04-27] MEDS: diphenhydrAMINE HCL 50 MG CAP PO PRN (22:25)
[2018-04-27] MEDS: ACETAMINOPHEN 325 MG TAB PO PRN (22:25)
[2018-04-27] MEDS: LORazepam 1 MG TAB PO PRN (23:55)
[2018-04-28 06:06] VITALS: BP 141/80; PULSE 77; RESP 16; TEMP 97.9; O2SAT 99
[2018-04-28] MEDS: NICOTINE 21 MG/24 HR PATCH T-DERMAL SCH (08:34)
[2018-04-28] MEDS: ACETAMINOPHEN 325 MG TAB PO PRN (08:34)
[2018-04-28] MEDS ORDERED: ARIPiprazole 15 MG TAB PO SCH (09:00)
[2018-04-28 17:50] VITALS: BP 137/75; PULSE 94; RESP 17; TEMP 97.7; O2SAT 99
--- NOTE | 2018-04-28 20:44 | HHI.PYPN ---
Subjective Remarks Patient seen for follow up; chart reviewed. Discussion with nursing staff reported that the patient continues to be noted to talk to self. Patient was presented to mental health court and retained for continued stabilization. Patient was found ambulating on the unit, states having having been visited by his mother and sister. He reports having difficulty with sleep last night due to worrying about mental health court today He states his mood as "up and down ", denies any side effects from any medications. He states that he continues to experience AH and noted to be internally preoccupied and talking to self. Review of Systems Except as stated in HPI: all other systems reviewed are Neg Mental Status Examination Appearance: Disheveled Consciousness: Alert Orientation: x4 Motor Activity: Normal gait Speech: Unremarkable Language: Adequate Fund of Knowledge: Adequate Attention and Concentration: Adequate Memory: Impaired (Psychosis interferes) Mood: Other (Somewhat depressed) Affect: Blunt Thought Process & Associations: Disorganized (Lessening), Other ([place]) Thought Content: Bizarre thinking, Hallucinations (Internally preoccupied), Delusional Hallucination Type: Auditory (Commenting) Delusion Type: Paranoid Suicidal Ideation: No Suicidal Plan: No Suicidal Intention: No Homicidal Ideation: No Homicidal Plan: No Homicidal Intention: No Insight: Poor Judgment: Poor Results Vitals/IOs Vital Signs Date Time Temp Pulse Resp B/P (MAP) Pulse Ox O2 Delivery O2 Flow Rate FiO2 04/28/18 17:50 97.7 94 17 137/75 (95) 99 Assessment & Plan Problem List: (1) Unspecified psychosis ICD Codes: F29 - Unspecified psychosis not due to a substance or known physiological condition Assessment & Plan Patient continues with AH and continues to be internally preoccupied as noted during interview as patient seen responding to internal stimiuli. Will continue to titrate Abilify to 20mg PO daily. Will consider switching agents if patient continues wtih partial response despite maximizing dose. Continue to monitor mood and behavior. Discharge planning in progress. Justification for Cont. Inpt. At risk for further decompensation at lower level of care. Discharge Planning Patient to return back to residence Hector Nelson MD April 28, 2018 20:44
[2018-04-28] MEDS: REMOVE OLD NICODERM (NICOTINE) PATCH T-DERMAL SCH (21:00)
[2018-04-28] MEDS: diphenhydrAMINE HCL 50 MG CAP PO PRN (21:00)
[2018-04-29 05:27] VITALS: BP 100/64; PULSE 70; RESP 16; TEMP 98; O2SAT 99
[2018-04-29] MEDS: NICOTINE 21 MG/24 HR PATCH T-DERMAL SCH (08:34)
[2018-04-29 16:56] VITALS: BP 113/72; PULSE 97; RESP 18; TEMP 98.4; O2SAT 98
[2018-04-29] MEDS: ACETAMINOPHEN 325 MG TAB PO PRN (16:57)
--- NOTE | 2018-04-29 18:22 | HHI.PYPN ---
Subjective Remarks Patient seen for follow-up, chart reviewed. Discussion with nursing staff reported that the patient patient responding to internal stimuli. Patient found in room, appearing internally preoccupied. He states that he is sleeping well, continues with AH which is 50% better, last being 10 min. ago. Patient appears to be responding to internal stimuli during interview. Patient states that the AH are people mumbling. He reports eating and drinking well, agreed to shower today. Had visit with sister and states that she thinks he is doing "in between ". Review of Systems Except as stated in HPI: all other systems reviewed are Neg Mental Status Examination Appearance: Disheveled Consciousness: Alert Orientation: x4 Motor Activity: Normal gait Speech: Unremarkable Language: Adequate Fund of Knowledge: Adequate Attention and Concentration: Adequate Memory: Impaired (Psychosis interferes) Mood: Other (Somewhat depressed) Affect: Blunt Thought Process & Associations: Disorganized (Lessening), Other ([place]) Thought Content: Bizarre thinking, Hallucinations (Internally preoccupied), Delusional Hallucination Type: Auditory (Commenting) Delusion Type: Paranoid Suicidal Ideation: No Suicidal Plan: No Suicidal Intention: No Homicidal Ideation: No Homicidal Plan: No Homicidal Intention: No Insight: Poor Judgment: Poor Results Vitals/IOs Vital Signs Date Time Temp Pulse Resp B/P (MAP) Pulse Ox O2 Delivery O2 Flow Rate FiO2 04/29/18 16:56 98.4 97 18 113/72 (86) 98 Assessment & Plan Problem List: (1) Unspecified psychosis ICD Codes: F29 - Unspecified psychosis not due to a substance or known physiological condition Assessment & Plan Patient continues with internal preoccupation, AH. Will cross titrate abilify with risperidone as there is limited effect with abilify. Continue to monitor mood and behavior. Discharge planning in progress. Justification for Cont. Inpt. At risk for further decompensation at lower level of care. Discharge Planning To return back to sister's residence once psychiatrically stable. Hector Nelson MD Apr 29, 2018 18:22
[2018-04-29] MEDS: REMOVE OLD NICODERM (NICOTINE) PATCH T-DERMAL SCH (21:00)
[2018-04-29] MEDS: LORazepam 1 MG TAB PO PRN (21:48)
[2018-04-29] MEDS: risperiDONE 1 MG TAB PO SCH (21:49)
[2018-04-30 06:00] VITALS: BP 103/58; PULSE 60; RESP 18; TEMP 97.1; O2SAT 98
[2018-04-30] MEDS: NICOTINE 21 MG/24 HR PATCH T-DERMAL SCH (09:00)
[2018-04-30] MEDS: ARIPiprazole 15 MG TAB PO SCH (09:03)
[2018-04-30] MEDS: risperiDONE 1 MG TAB PO SCH ×2 (09:03→20:08)
--- NOTE | 2018-04-30 13:46 | HHI.PYPN ---
Subjective Remarks Patient was seen and case discussed with nursing. Patient says the auditory hallucinations have improved but continued to be there. Affect is blunted and there is psychomotor retardation. Nursing notices patient talking to himself. He is eating and sleeping well. Notices an improvement in mood. Denies suicidal or homicidal ideation intent or plan Mental Status Examination Appearance: Disheveled Consciousness: Alert Orientation: x4 Motor Activity: Normal gait Speech: Unremarkable Language: Adequate Fund of Knowledge: Adequate Attention and Concentration: Adequate Memory: Impaired (Psychosis interferes) Mood: Other (Somewhat depressed) Affect: Blunt Thought Process & Associations: Disorganized (Lessening), Other ([place]) Thought Content: Bizarre thinking, Hallucinations (Internally preoccupied), Delusional Hallucination Type: Auditory (Commenting) Delusion Type: Paranoid Suicidal Ideation: No Suicidal Plan: No Suicidal Intention: No Homicidal Ideation: No Homicidal Plan: No Homicidal Intention: No Insight: Poor Judgment: Poor Results Vitals/IOs Vital Signs Date Time Temp Pulse Resp B/P (MAP) Pulse Ox O2 Delivery O2 Flow Rate FiO2 04/30/18 06:00 97.1 60 18 103/58 (73) 98 Assessment & Plan Problem List: (1) Unspecified psychosis ICD Codes: F29 - Unspecified psychosis not due to a substance or known physiological condition Assessment & Plan Continue current treatment plan Justification for Cont. Inpt. Patient would decompensate in a less restrictive setting Andrew Dennis DO Apr 30, 2018 13:46
[2018-04-30] MEDS: LORazepam 1 MG TAB PO PRN ×2 (15:37→21:02)
[2018-04-30 18:10] VITALS: BP 123/70; PULSE 94; RESP 16; TEMP 98.2; O2SAT 98
[2018-04-30] MEDS: REMOVE OLD NICODERM (NICOTINE) PATCH T-DERMAL SCH (20:08)
[2018-04-30] MEDS: diphenhydrAMINE HCL 50 MG CAP PO PRN (22:54)
[2018-05-01 05:36] VITALS: BP 115/73; PULSE 88; RESP 16; TEMP 97.6; O2SAT 99
--- NOTE | 2018-05-01 08:37 | HHI.PYPN ---
Subjective Remarks Patient was seen and case discussed with nursing. Patient continues to respond to internal stimuli. Per nursing, he is talking to himself throughout the day. Times exit seeking. Per nursing he is having trouble sleeping but patient says he slept well. Patient feels that his voices have improved and he denies auditory or visual hallucinations. Tolerating his medications well Mental Status Examination Appearance: Disheveled Consciousness: Alert Orientation: x4 Motor Activity: Normal gait Speech: Unremarkable Language: Adequate Fund of Knowledge: Adequate Attention and Concentration: Adequate Memory: Impaired (Psychosis interferes) Mood: Other (Somewhat depressed) Affect: Blunt Thought Process & Associations: Disorganized (Lessening), Other ([place]) Thought Content: Bizarre thinking, Hallucinations (Internally preoccupied), Delusional Hallucination Type: Auditory (Commenting) Delusion Type: Paranoid Suicidal Ideation: No Suicidal Plan: No Suicidal Intention: No Homicidal Ideation: No Homicidal Plan: No Homicidal Intention: No Insight: Poor Judgment: Poor Results Vitals/IOs Vital Signs Date Time Temp Pulse Resp B/P (MAP) Pulse Ox O2 Delivery O2 Flow Rate FiO2 05/01/18 05:36 97.6 88 16 115/73 (87) 99 Assessment & Plan Problem List: (1) Unspecified psychosis ICD Codes: F29 - Unspecified psychosis not due to a substance or known physiological condition Assessment & Plan Continue current treatment plan Justification for Cont. Inpt. Patient would decompensate in a less restrictive setting Andrew Dennis DO May 01, 2018 08:37
[2018-05-01] MEDS: NICOTINE 21 MG/24 HR PATCH T-DERMAL SCH (09:00)
[2018-05-01] MEDS: ARIPiprazole 15 MG TAB PO SCH (09:29)
[2018-05-01] MEDS: risperiDONE 1 MG TAB PO SCH ×2 (09:29→20:00)
[2018-05-01 16:47] VITALS: BP 130/70; PULSE 102; RESP 16; TEMP 97.5; O2SAT 99
[2018-05-01] MEDS: LORazepam 1 MG TAB PO PRN (19:58)
[2018-05-01] MEDS: diphenhydrAMINE HCL 50 MG CAP PO PRN (19:58)
[2018-05-01] MEDS: ACETAMINOPHEN 325 MG TAB PO PRN (19:59)
[2018-05-01] MEDS: REMOVE OLD NICODERM (NICOTINE) PATCH T-DERMAL SCH (20:00)
[2018-05-02 06:14] VITALS: BP 104/55; PULSE 55; RESP 17; TEMP 97.3; O2SAT 98
[2018-05-02] MEDS: risperiDONE 1 MG TAB PO SCH (08:57)
[2018-05-02] MEDS: NICOTINE 21 MG/24 HR PATCH T-DERMAL SCH ×2 (08:57→09:00)
[2018-05-02] MEDS: ARIPiprazole 15 MG TAB PO SCH (08:57)
--- NOTE | 2018-05-02 09:10 | PD.TTN ---
Patient Problems 1. Discharge planning 2. Medication compliance 3. Knowledge deficit 4. Lack of coping skills Progress Toward Goals Provider Present: Dr. Blanquita Nelson Provider Input: Omar Wade had his treatment team to discuss patient's treatment plan, discharge and medication. Patient's medication is to be increased, internally stimulated, continue with treatment Nurse(s) Input: Patient's nurse Ezio reports patient is internally stimulated, bizarre with behaviors, medication compliant Psychiatric Counselors Present: Mary Ann Mejias [facility] Psych Therapist Input: Patient presents cooperative, pleasant, internally stimulated. Patient will remain on unit for further stablization,. Patient's medication will be increased. Group Spec/RT/OT/GARCIA Present: MARVA Doherty Group Spec/RT/OT/GARCIA Input: Patient attends selective groups. Mary Ann Mejias [facility] May 02, 2018 09:10
[2018-05-02] MEDS: ACETAMINOPHEN 325 MG TAB PO PRN (16:11)
--- NOTE | 2018-05-02 18:17 | HHI.PYPN ---
Subjective Remarks Patient seen for follow, chart reviewed. Discussion nursing staff reported the patient is pleasant continues to be noted to be internally preoccupied throughout the day. Patient was found heavily on unit noted B, cooperative noted to have more affect and reactive during interview. Patient states that he is "not too bad" reports having visited by his family who feel that he is improving. Patient continues to have reported auditory hallucinations but states that they are lessening. Discussion via telephone with patient's mother reported the patient is improving with current treatment regimen and the patient is able to maintain conversation although she has continued to notice patient having conversations to self at times during visitation. She mentions that she feels comfortable taking patient back home, is cognizant of patient's continued symptoms although significantly decreased since admission and aware of medical writer's recommendations for continued stay for psychiatric stabilization but continues to request the patient be discharged back home with her. Review of Systems Except as stated in HPI: all other systems reviewed are Neg Mental Status Examination Appearance: Appropriate Consciousness: Alert Orientation: x4 Motor Activity: Normal gait Speech: Unremarkable Language: Adequate Fund of Knowledge: Adequate Attention and Concentration: Adequate Memory: Impaired (Psychosis interferes) Mood: Appropriate Affect: Appropriate Thought Process & Associations: Disorganized (Lessening), Other ([place]) Thought Content: Hallucinations (Internally preoccupied but lessening) Hallucination Type: Auditory (Commenting) Delusion Type: Paranoid (Lessening) Suicidal Ideation: No Suicidal Plan: No Suicidal Intention: No Homicidal Ideation: No Homicidal Plan: No Homicidal Intention: No Insight: Fair Judgment: Impulsive Results Vitals/IOs Vital Signs Date Time Temp Pulse Resp B/P (MAP) Pulse Ox O2 Delivery O2 Flow Rate FiO2 05/02/18 06:14 97.3 55 17 104/55 (71) 98 Assessment & Plan Problem List: (1) Unspecified psychosis ICD Codes: F29 - Unspecified psychosis not due to a substance or known physiological condition Assessment & Plan Patient this time continues to have positive hallucinations and noted to be talking to self at times but is significantly less compared to admission and patient noted with more reactive affect. We will continue to increase risperidone to 1 mg a.m./2 mg at bedtime for psychosis. As discussed with patient's mother recommendations were for continued stabilization but has requested strongly that patient be discharged back to her care which she states will be actively involved to make sure the patient continues outpatient follow- up for continuity of care and for continuing improvement with symptoms. We will continue to monitor mood and behavior. Patient likely for discharge back to mother's care tomorrow despite recommendations for continued stabilization but at this time there is no immediate concern of patient danger to self, others or deficit of self-care as patient has shown adequately to be able to have adequate ADLs on the unit. Justification for Cont. Inpt. At risk for further decompensation if at lower level of care Discharge Planning Patient return back to mother's home upon discharge Hector Nelson MD May 02, 2018 18:16
[2018-05-02 18:19] VITALS: BP 118/63; PULSE 79; RESP 16; TEMP 98.6; O2SAT 95
[2018-05-02] MEDS: REMOVE OLD NICODERM (NICOTINE) PATCH T-DERMAL SCH (20:36)
[2018-05-02] MEDS: diphenhydrAMINE HCL 50 MG CAP PO PRN (20:36)
[2018-05-02] MEDS ORDERED: risperiDONE 1 MG TAB PO SCH (21:00)
[2018-05-03 05:45] VITALS: BP 103/66; PULSE 60; RESP 16; TEMP 98.1; O2SAT 95
[2018-05-03] MEDS: NICOTINE 21 MG/24 HR PATCH T-DERMAL SCH (08:37)
[2018-05-03] MEDS ORDERED: risperiDONE 1 MG TAB PO SCH (09:00)
[2018-05-03] MEDS: ACETAMINOPHEN 325 MG TAB PO PRN (09:43)
[2018-05-03] MEDS ORDERED: RISP2TAB2 PO (12:37)
[2018-05-03] MEDS ORDERED: RISP1 PO (12:37)
--- NOTE | 2018-05-03 12:38 | HHI.DS ---
Psychiatry Discharge Summary Inpatient Psychiatric care?: Yes Advance Directive: No Reason Not Provided: DOES NOT HAVE Mental Health AdvanceDirective: No Health Care Proxy: No Admission Admission Date April 23, 2018 at 08:27 Admission Diagnosis: (1) Unspecified psychosis ICD Code: F29 - Unspecified psychosis not due to a substance or known physiological condition Brief History From Dr. Barriga's H&P: The patient is a 27-year-old man, domiciled in [place] with his sister, single, part-time employed doing yard work, with an extensive psychiatric history of bipolar disorder, ODD, ADHD, multiple psychiatric hospitalizations in his childhood and adolescence, one previous suicide attempt , not taking any psychotropics, no outpatient care, cocaine and alcohol use disorder, no significant medical history, presents to the emergency room initially voluntarily with his sister for psychiatric evaluation. Initially states his sister brought him and encouraged him to stay and to start his treatment. Patient states he has been talking to himself and his sister thinks he is weird. When the patient was transferred to the [facility] from [facility] ER he became increasingly agitated and verbally hostile, he was not able to follow verbal redirection and he was medicated with olanzapine 10 mg and Benadryl 25 mg IM to help him to calm down. He was also put on the [place] act. Today on psychiatric evaluation I find a patient that is guarded, irritable, oppositional , disheveled and dirty. At the beginning the patient was refusing to talk to me. But, he was sensitive to verbal redirection this time and he opened up a little bit. The patient has a marked blocking thought and speech delay. He states that for the first time in about a week he had a good sleep last night. He reports that he has not been sleeping more than 2 hours. He says that he has been hearing voices on and off. The voices are conversing among themself making derogatory comments about him. He also states that at times the voices get very loud "and nasty". As per sister the patient has been talking to himself, acting bizarre, secluded in his room, not taking showers, not taking care of himself and not sleeping. The patient is now fully oriented 3, he has no attention deficit, no fluctuation of consciousness. The patient denies suicidal and homicidal ideation, he denies visual hallucinations. Patient reports that he has been using alcohol and cocaine occasionally, he uses for the last time about 3 days ago. On my examination today, 04/24: Patient seen and examined with nurse. Chart reviewed. Case discussed with nursing staff who reports patient is frankly responding to internal stimuli. On my examination today, the patient presents as quite disheveled and disorganized. He walks back and forth from the door to his room and the door to his bathroom checking these in a somewhat aimless fashion. He endorses auditory hallucinations commenting; denies any command auditory hallucinations. Denies SI or HI but admits to recent suicidal ideation "a couple of times." He reports depression "off and on, like a light switch." No hypomanic or manic symptoms. Remainder of the psychiatric ROS is negative. No acute physical complaints. Past psychiatric history: Patient reports a history of bipolar disorder and ADHD. He is not currently under the care of a psychiatrist. He says that he has previously attempted suicide "once or twice." Family history: Patient denies family history of mental illness. Chemical dependency history: Patient reports a remote history of cocaine use. More recently he has been abusing Dilaudid and methamphetamine. Social history: The patient is high school educated. He works odd jobs. He is single with no children. Tobacco Use In Past 30 Days: 4 or Less Cigarettes/Day Alcohol Use: 2-3 Times Per Week Hospital Course The patient is a 27-year-old man, domiciled in [place] with his sister, single, part-time employed doing yard work, with an extensive psychiatric history of bipolar disorder, ODD, ADHD, multiple psychiatric hospitalizations in his childhood and adolescence, one previous suicide attempt , not taking any psychotropics, no outpatient care, cocaine and alcohol use disorder, no significant medical history, presents to the emergency room initially voluntarily with his sister for psychiatric evaluation. Patient was started on aripiprazolea and titrated to 20mg daily but minimal response to treatment ans was cross titrated to risperdione and titrated to 1mg a.m./ 2mg HS which he began to respond to and with noted improvement. Patient tolerated medications well with no reported adverse drug reactions. Patient noted to start having improvement in mood, less disorganizatino, less internal preoccupation and responding to internal stimulation. Patient had no behavioral disturbances since admission and continued to deny suicidal ideation or homicidal ideation. Patient had been reporting auditory hallucinations since admission and continued to do so but denying any command auditory hallucinations. He continued to experience auditory hallucinations but were lessening with treatment. Patient also noted with some improvement of personal hygiene and caring for self and participated in groups and activities. Patient s mother had communicated with the treatment team that she would like the patient to return back home and that she would oversee his continued treatment and outpatient follow up. Despite recommendations of continued hospital stay to further psychiatric stabilization was provided to patients mother but continued to request patient to be discharged to her care. Att his time there is no immediate concern of patient being a danger to self, others or deficit of self-care as patient has shown adequately to be able to have adequate ADLs on the unit and therefore no longer meets criteria for involuntary admission under the [place] Act and will therefore be discharged to [facility] care. Patient was counseled on continued abstinence from substance use. Supportive psychotherapy provided. Patient agreed to continue treatment and follow up appointments for continuity of care. Patient agreed to return back to her nursing facility. Patient advised to call 911 or go nearest ED in case of emergency. Patient agreed with plan. Results Blood Pressure 103 / 66 Vital Signs Date Time Temp Pulse Resp B/P (MAP) Pulse Ox O2 Delivery O2 Flow Rate FiO2 05/03/18 05:45 98.1 60 16 103/66 (78) 95 Laboratory Results Test 04/24/18 08:17 Cholesterol Level 133 MG/DL (120-200) HDL Cholesterol 45.5 MG/DL (40.0-60.0) Hemoglobin A1c 4.8 % (4.3-6.0) LDL Cholesterol 71 MG/DL (0-99) Triglycerides Level 85 MG/DL (42-150) Summary of Procedures None Pending results at discharge: No Medications # of Antipsychotic meds at D/C: 1 Approp Antipsych med options 1 - Minimum of three failed multiple trials of monotherapy. 2 - Documented plan to taper to monotherapy due to previous use of multiple meds OR cross-taper in progress at D/C. 3 - Documentation of augmentation of Clozapine. 4 - Justification other than those listed in allowable values 1-3, document here : Discharge Discharge Date: May 03, 2018 Discharge Diagnosis: (1) Unspecified psychosis ICD Code: F29 - Unspecified psychosis not due to a substance or known physiological condition Pt Condition on Discharge: Stable Discharge Disposition: Discharge Home Discharge Instructions Diet Instructions: As Tolerated, No Restrictions Activities you can perform: Regular-No Restrictions Scheduled Appointment: Farrukh Corley Appointment Date: May 05, 2018 Appointment Time: 7:30am Discharge Time > 30 minutes Mental Status Examination Appearance: Appropriate Consciousness: Alert Orientation: x4 Motor Activity: Normal gait Speech: Unremarkable Language: Adequate Fund of Knowledge: Adequate Attention and Concentration: Adequate Memory: Impaired (Psychosis interferes) Mood: Appropriate Affect: Appropriate Thought Process & Associations: Other ([place]) Thought Content: Hallucinations (minimal) Hallucination Type: Auditory (Commenting) Delusion Type: Paranoid (Lessening) Suicidal Ideation: No Suicidal Plan: No Suicidal Intention: No Homicidal Ideation: No Homicidal Plan: No Homicidal Intention: No Insight: Fair Judgment: Impulsive Discharge/Advance Care Plan Health Problems: (1) Unspecified psychosis Goals to promote your health * To prevent worsening of your condition and complications * To maintain your health at the optimal level Directions to meet your goals Take your medications as prescribed Follow your dietary instruction Follow activity as directed Keep your appointments as scheduled Take your immunizations and boosters as scheduled If your symptoms worsen call your PCP, if no PCP go to Urgent Care Center or Emergency Room For 21/06 questions related to your inpatient stay or results of tests pending at discharge, please contact Dr. Hector Nelson at Smoking is Dangerous to Your Health. Avoid second hand smoking Hector Nelson MD May 03, 2018 12:38
== END 2018-05-03 13:35 | disposition home or self-care (01) | DRG 885 ==
LOC: NEPJ 10:51 → NEDA 04-23 08:27 → H260 04-23 10:10
PROVIDERS: ADMIT Student in an Organized Health Care Education/Training Program; ATTEND Student in an Organized Health Care Education/Training Program
DX: F29 Unspecified psychosis not due to a substance or known physiological condition (principal); F31.9 Bipolar disorder, unspecified; F91.3 Oppositional defiant disorder; F90.9 Attention-deficit hyperactivity disorder, unspecified type; Z91.5 Personal history of self-harm; Z72.0 Tobacco use
CPT/HCPCS: 80048; 80053; 80061; 80307; 83036; 85025; 90686; 90732; 99285; Q0163; Q2038